=== PATIENT | female | born 1980 | race Caucasian/White ===

== ENCOUNTER 2016-07-18 17:42 | Emergency (ER) | payer MEDICAID ==
[~2016-07-18] VITALS: Ht 157.5 cm; Wt 61.5 kg
[~2016-07-18 17:42] MED LIST: ACET1TAB40 PO; PRENAT PO; VALA100057 PO
[2016-07-18 17:45] VITALS: Ht 157.5 cm; Wt 61.5 kg
[2016-07-18] MEDS ORDERED: AMO500 PO (17:59)
[2016-07-18] MEDS ORDERED: IBUP-1542 PO (17:59)
--- NOTE | 2016-07-18 18:05 | ERD ---
ER Documentation Chief Complaint Date/Time DATE: 07/18/16 TIME: 18:01 Chief Complaint LT EAR PAIN , LT SIDE FACE PAIN HPI Patient is a 36-year-old female who presents to the emergency department with left-sided facial pain and ear pain 1 week. Patient states that she has been taking [id number] eardrops and Advil Cold and cough with no relief of symptoms. Patient states that she has increased pressure sensation in her forehead as well as her sinuses. Patient states she is also having yellow nasal discharge. Patient states that she did have intermittent fevers last time she checked her temperature was yesterday. Patient notes a temperature 101 Fahrenheit. Patient denies any chest pain, shortness of breath, nausea, vomiting. Patient also does have a dry cough. Patient states she did take her flu vaccine this year. No sick contacts. No recent travel. ROS All systems reviewed and are negative except as per history of present illness. Medications Home Meds Active Scripts Ibuprofen* (Motrin*) 600 Mg Tab, 600 MG PO Q6, #30 TAB Prov:DANN CROCKER PA-C 07/18/16 Amoxicillin* (Amoxicillin*) 500 Mg Cap, 500 MG PO BID, #20 CAP Prov:DANN CROCKER PA-C 07/18/16 Acetaminophen-Codeine* (Acetaminophen-Cod #3*) 300-30 Mg Tab, 1 TAB PO Q6 Y for PAIN, #15 TAB Prov:BRITNEY VILLAFUERTE. 04/22/15 Valacyclovir Hcl* (Valtrex*) 1,000 Mg Tablet, 1000 MG PO TID for 7 Days, TAB Prov:BRITNEY VILLAFUERTE 04/22/15 Reported Medications Multivit/Min/Fol Ac/Iron/Pren* ( S*) 1 Tab Tab, 1 TAB PO DAILY, TAB 03/04/15 Allergies Allergies: Coded Allergies: No Known Allergy (Unverified , 03/04/15) PMhx/Soc History of Surgery: Yes () Anesthesia Reaction: No Hx Neurological Disorder: No Hx Respiratory Disorders: No Hx Cardiac Disorders: No Hx Psychiatric Problems: No Hx Miscellaneous Medical Probl: No Hx Substance Use: Yes (MARIJUANA) Hx Tobacco Use: No FmHx Family History: No diabetes Physical Exam Vitals Vital Signs Date Time Temp Pulse Resp B/P Pulse Ox O2 Delivery O2 Flow Rate FiO2 07/18/16 17:45 98.8 59 18 128/65 98 Physical Exam GENERAL: Well-developed, well-nourished female. Appears in no acute distress. HEAD: Normocephalic, atraumatic. No deformities or ecchymosis. EYE: Pupils equal, round, and reactive to light. EOMs intact. No conjunctival erythema. No eye discharge. ENT: External ear without any masses or tenderness. Auditory canals clear bilaterally. No hemotympanium. TM visualized bilaterally, non-erythematous, non- bulging. Nasal septum midline. Nasal mucosa pink with no discharge. Turbinates normal. Oropharynx is pink without any tonsillar erythema or exudates. Good dentition. Gums without bleeding or edema. Tender to palpation of bilateral frontal and maxillary sinuses. Patient reports increased head pressure upon bending down. Nontender to palpation of bilateral mastoid processes NECK: Supple. No meningismus. Normal ROM of the neck. LUNG: Clear to auscultation bilaterally. No rhonchi, wheezing, rales or coarse breath sounds. HEART: Regular rate and rhythm. No murmurs, rubs or gallops. BACK: No midline tenderness. EXTREMITES: Equal pulses bilaterally. No peripheral clubbing, cyanosis or edema. No unilateral leg swelling. NEUROLOGIC: Alert and oriented to person, place and time. Moving all four extremities. 5/5 strength in all extremities. Normal speech. Steady gait. SKIN: Normal color. Warm and dry. No rashes or lesions. Procedures/MDM MEDICAL DECISION MAKING: This is a 36-year-old female who presents with facial pain and ear pain 1 week. Patient states that she has increased pressure upon bending down. Patient also reports nasal congestion 7 days. Vital signs were reviewed. Patient was afebrile. Patient was not hypoxic. ENT exam revealed bilateral tenderness to palpation of frontal and maxillary sinuses. Given these findings , the patient's presentation is most consistent with sinusitis. I have a much lower clinical concern pneumonia, meningitis, otitis externa, acute otitis media , strep pharyngitis, epiglottitis or peritonsillar abscess. Given the patient has had symptoms now for 7 days, I will give the patient a prescription for antibiotics. Advised the patient to fill it if her symptoms persist after 3 days from today. PRESCRIPTIONS: Amoxicillin, ibuprofen DISCHARGE: At this time, patient is stable for discharge and outpatient management. Supportive therapies such as OTC throat lozenges, salt water gurgles, popsicles and jello discussed. I have instructed the patient to follow-up with his/her primary care physician in 1-2 days. I have instructed the patient to promptly return to the ER for any new or worsening symptoms including increased pain, swelling, fever, nausea, vomiting, weakness or difficulty breathing. The patient and/or family expressed understanding of and agreement with this plan. All questions were answered. Home care instructions were provided. Departure Diagnosis: Primary Impression: Sinusitis Sinusitis location: unspecified location Chronicity: unspecified Qualified Code: J32.9 - Sinusitis, unspecified chronicity, unspecified location Additional Impression: Ear pain, referred Laterality: left Qualified Code: H92.02 - Ear pain, referred, left Condition: Stable Patient Instructions: Sinusitis, Abx Tx Referrals: [facility] YOU HAVE RECEIVED A MEDICAL SCREENING EXAM AND THE RESULTS INDICATE THAT YOU DO NOT HAVE A CONDITION THAT REQUIRES URGENT TREATMENT IN THE EMERGENCY DEPARTMENT. FURTHER EVALUATION AND TREATMENT OF YOUR CONDITION CAN WAIT UNTIL YOU ARE SEEN IN YOUR DOCTORS OFFICE WITHIN THE NEXT 1-2 DAYS. IT IS YOUR RESPONSIBILITY TO MAKE AN APPOINTMENT FOR [facility]ARE. IF YOU HAVE A PRIMARY DOCTOR --you should call your primary doctor and schedule an appointment IF YOU DO NOT HAVE A PRIMARY DOCTOR YOU CAN CALL OUR PHYSICIAN REFERRAL HOTLINE AT IF YOU CAN NOT AFFORD TO SEE A PHYSICIAN YOU CAN CHOSE FROM THE FOLLOWING [facility] [address] [facility]. [facility] [address] [facility]. [facility] [address] [facility]. [facility] [address] [facility]. [facility] [address] [facility]. [facility]. [address] [facility]. [facility] YOU HAVE RECEIVED A MEDICAL SCREENING EXAM AND THE RESULTS INDICATE THAT YOU DO NOT HAVE A CONDITION THAT REQUIRES URGENT TREATMENT IN THE EMERGENCY DEPARTMENT. FURTHER EVALUATION AND TREATMENT OF YOUR CONDITION CAN WAIT UNTIL YOU ARE SEEN IN YOUR DOCTORS OFFICE WITHIN THE NEXT 1-2 DAYS. IT IS YOUR RESPONSIBILITY TO MAKE AN APPOINTMENT FOR [facility]. IF YOU HAVE A PRIMARY DOCTOR --you should call your primary doctor and schedule and appointment IF YOU DO NOT HAVE A PRIMARY DOCTOR YOU CAN CALL OUR PHYSICIAN REFERRAL HOTLINE AT . IF YOU CAN NOT AFFORD TO SEE A PHYSICIAN YOU CAN CHOSE FROM THE FOLLOWING [facility] INSTITUTIONS: [facility] [address] [place] [address] [facility] [address] [place] [address] [facility] [address] [place] [address] Additional Instructions: Call your primary care doctor TOMORROW for an appointment during the next 1-2 days.See the doctor sooner or return here if your condition worsens before your appointment time. DANN CROCKER PA-C Jul 18, 2016 18:05
== END 2016-07-20 07:21 | disposition home or self-care (01) ==
LOC: E/R 17:42
DX: J32.9 Chronic sinusitis, unspecified (principal)
CPT/HCPCS: 99283